=== PATIENT | female | born 1965 | race African-American/Black ===

== ENCOUNTER 2020-05-07 17:37 | Emergency (ER) | payer MEDICAID ==
[~2020-05-07] VITALS: Ht 160 cm; Wt 71.7 kg
[2020-05-07] MEDS ORDERED: NORVASC5 MG ORAL (18:02)
--- NOTE | 2020-05-07 18:03 | Emergency Room Report ---
History of Present Illness General Chief Complaint: Hypertension Source: Patient Present Illness HPI 54-year-old female presents with asymptomatic hypertension, found to be systolic blood pressure 190s, currently denies any chest pain shortness of breath or headache no visual changes currently asymptomatic sent to be evaluated currently has no primary care physician no known aggravating relieving factors severity is mild, constant pressure was checked today Allergies: Coded Allergies: No Known Allergies (Unverified , 05/07/20) COVID-19 Screening Contact w/high risk pt: No Experienced COVID-19 symptoms?: No 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 COVID-19 Screening: Negative COVID-19 COVID-19 Testing Source: 05/05/20 Patient History Past Medical History: see triage record Now: No Reviewed Nursing Documentation: PMH: Agreed; PSxH: Agreed Nursing Documentation-PMH Past Medical History: No Stated History Review of Systems All Other Systems: negative except mentioned in HPI Physical Exam Vital Signs Date Time Temp Pulse Resp B/P (MAP) Pulse Ox O2 Delivery O2 Flow Rate FiO2 05/07/20 17:46 98.2 100 20 199/94 (129) 98 Room Air Sp02 EP Interpretation: reviewed, normal General Appearance: well appearing, no apparent distress, alert Head: normocephalic, atraumatic Eyes: bilateral eye PERRL, bilateral eye EOMI ENT: uvula midline, moist mucus membranes Neck: supple, thyroid normal, supple/symm/no masses Respiratory: lungs clear, no respiratory distress, no retraction, no accessory muscle use Cardiovascular #1: normal peripheral pulses, regular rate, rhythm, no edema, no gallop, no murmur Gastrointestinal: non tender, soft, no guarding, no rebound Musculoskeletal: normal inspection Neurologic: alert, oriented x3 Psychiatric: mood/affect normal Skin: no rash, warm/dry Medical Decision Making Diagnostic Impression: Primary Impression: Hypertension Qualified Codes: I10 - Essential (primary) hypertension ER Course 54-year-old female presents with asymptomatic hypertension, no indications for blood work, or acutely controlling her blood pressure at this moment, patient counseled that she should seek care if she becomes symptomatic we will start patient on amlodipine, counseled patient to follow-up with her primary care phys martha to get outpatient blood work patient is amenable to this plan disposition home with return precautions follow-up with PCP Last Vital Signs Date Time Temp Pulse Resp B/P (MAP) Pulse Ox O2 Delivery O2 Flow Rate FiO2 05/07/20 17:58 100 199/94 05/07/20 17:46 98.2 20 98 Room Air Disposition: HOME, SELF-CARE Condition: Stable Scripts Amlodipine Besylate (Norvasc) 5 Mg Tablet 5 MG ORAL DAILY, #90 TAB Prov: Gm Moser MD 05/07/20 Referrals: [facility]. [facility] Patient Instructions: Hypertension, [id number] Additional Instructions: The patient was provided with discharge instructions, notified to follow-up with a primary care doctor and or specialist in the next 24-48 hours, and to return to the ED if they have worsening of their symptoms. Please note that this report is being documented using Re-[employer] technology. This can lead to erroneous entry secondary to incorrect interpretation by the d ictating instrument. Gm Moser MD May 07, 2020 18:03
[2020-05-07 18:10] VITALS: BP 199/94
--- NOTE | 2020-05-07 18:10 | NUR ---
ED Nurse Note: Pt cleared by health care Provider for discharge. DC instructions/prescription was given and explained to pt and verbalized understanding of teachings. All medical deviecs such as ID band removed. Pt is AAO x4, ambulatory and left with all personal belongings.
[2020-05-07 18:12] VITALS: BP 190/90
== END 2020-05-07 18:28 | disposition home or self-care (01) ==
LOC: EMR 18:00
DX: I10 Essential (primary) hypertension (principal)
CPT/HCPCS: 99281